=== PATIENT | male | born 2000 | race Caucasian/White ===

== ENCOUNTER → 2021-01-26 15:12 | Outpatient (BNVA) | payer BC, SELFPAY | PROVIDERS: PCP Registered Nurse; Visit Provider Surgery | DX: Z20.822 Contact with and (suspected) exposure to COVID-19 (principal); Z11.52 Encounter for screening for COVID-19 | CPT/HCPCS: 87635 ==

== ENCOUNTER → 2021-02-01 08:26 | Outpatient (BNVA) | payer BC, SELFPAY | PROVIDERS: PCP Registered Nurse; Visit Provider Surgery | DX: K21.9 Gastro-esophageal reflux disease without esophagitis (principal); Z20.822 Contact with and (suspected) exposure to COVID-19 | CPT/HCPCS: 87635 ==

== ENCOUNTER 2021-02-03 09:39 | Day surgery (SDC) | payer BC, SELFPAY ==
[2021-02-01 09:28] VITALS: BMI 31.7
--- NOTE | 2021-02-03 10:04 | ANES.PREANE2 ---
Pre-Anesthetic Assessment Pre-Anesthetic Assessment: Height/Weight: Height 1.75 m Weight 97.522 kg Preop Diagnosis: upper gi symptoms Proposed Procedure: Operation Date: 02/03/21 11:15 Proposed Procedures p EGD 26547 K21.9(Not Applicable) - Chris Zuniga MD Was Beta Sonal taken within 24 hours: N/A Was Clonidine taken within 24 hours: N/A Social: Social History: No alcohol and No tobacco Exam: Pre-Anes Outpt Exam: alert, oriented x 3, clear to auscultation bilaterally and regular rate & rhythm Airway: Submandibular: WNL Cervical ROM: WNL MP: 1 Dentition: Chipped History/ROS: No significant history except as noted Pulmonary: Pulmonary: None reported CV/HEM: CV/HEM: HTN : : None reported Hepatic: Hepatic: None reported GI: GI: GERD Comments: Reflux esophagitis Metabolic: Metabolic: None reported Musc/skel: Musc/skel: None reported Neuropsych: Neuropsych: None reported Anesthetic Plan: ASA status: 2 Anesthesia: Anesthesia Evaluation and MAC Risk of > 500 ml blood loss (7ml/kg in children): No Other Pertinent Information: We discussed anesthetic plan for MAC anesthesia. We discussed nature of MAC including the spectrum of anesthesia ranging from wide awake to deep sedation. We discussed that the patient may have recall of intraoperative events and stimuli including pain but that overall the patient should be comfortable . Patient agrees to proceed. PFSH Anesthesia PFSH: Medical History Hypertension Surgical History Hx of tonsillectomy Social History Smoking and tobacco status: never smoked Alcohol intake: never Current occupational status: employed Sexually active: Yes Current gender identity: Male Data Anesthesia Cardiac Studies: No Data to Display
[2021-02-03 10:56] VITALS: BP 153/88; PULSE 67; RESP 18; TEMP 36.7; O2SAT 99
[2021-02-03] MEDS: sodium chloride 0.9% 1,000 ML 30 ML IV (11:24)
--- NOTE | 2021-02-03 13:11 | P.HP_ITS ---
Same Day Surgery H&P Indication for Procedure/HPI DATE OF PROCEDURE: February 03, 2021 CHIEF COMPLAINT/INDICATIONFOR SURGICAL PROCEDURE: Chest pain-EGD PREOP DIAGNOSIS: upper gi symptoms PLANNED PROCEDRUE: Operation Date: 02/03/21 11:15 Proposed Procedures p EGD 15955 K21.9(Not Applicable) - Chris Zuniga MD Medications/Allergies* Allergies/Adverse Reactions Allergy/AdvReac Type Severity Reaction Status Date / Time No Known Allergies Allergy Verified 02/03/21 10:59 Current Medications: Generic Name Dose Route Start Last Admin Trade Name Freq PRN Reason Stop Dose Admin Sodium Chloride 1,000 mls @ 30 mls/hr 02/03/21 10:15 02/03/21 11:24 Sodium Chloride 0.9% IV 02/04/21 10:14 30 mls/hr .Q24H CECY Administration Pertinent History/Comorbid Conditions* Medical History (Updated 01/18/21 @ 14:34 by Chris Zuniga MD) Hypertension Surgical History (Updated 01/18/21 @ 14:34 by Chris Zuniga MD) Hx of tonsillectomy Social History Smoking and tobacco status: never smoked Alcohol intake: never Current occupational status: employed Sexually active: Yes Current gender identity: Male Pertinent Exam Findings alert, oriented x 3 and regular rate & rhythm Recommendations Surgery/Procedure today Coding Level of Care Code Acute 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
[2021-02-03 13:27] VITALS: BP 111/61; PULSE 66; RESP 16; TEMP 36.1; O2SAT 97
[2021-02-03 13:44] VITALS: BP 125/72; PULSE 74; RESP 18; TEMP 36.1; O2SAT 98
== END 2021-02-03 13:50 | disposition home or self-care (01) ==
PROVIDERS: PCP Registered Nurse; Visit Provider Surgery
PROC: 0DJ08ZZ Inspection of Upper Intestinal Tract, Via Natural or Artificial Opening Endoscopic (ICD-10-PCS; CPT 43235; principal; 2021-02-03 11:15)
DX: K21.9 Gastro-esophageal reflux disease without esophagitis (principal); I10 Essential (primary) hypertension
CPT/HCPCS: 43235; 96360; 96361; J2704; J7030

== ENCOUNTER → 2024-01-02 08:22 | Outpatient (BNVA) | payer BC, SELFPAY | PROVIDERS: PCP Registered Nurse; Visit Provider Registered Nurse | DX: Z13.1 Encounter for screening for diabetes mellitus (principal); I10 Essential (primary) hypertension | CPT/HCPCS: 80053; 80061; 83036; 85025 ==